=== PATIENT | female | born 1945 | race Caucasian/White ===

== ENCOUNTER 2017-07-14 11:24 | Emergency (ER) | payer MEDICARE, OTHER, BC ==
[~2017-07-14] VITALS: Ht 157.4 cm; Wt 68.0 kg
[~2017-07-14 11:24] MED LIST: ANTIVERT; ASPIRIN81 M1 PO; CIPRO500 MG PO; LIPITOR80 MG PO; LOMOTIL 0.025 M1 TAB PO; PREVACID30 M1 PO; SYNTHROID; VICODIN 5/500 505 MG PO; VITAMIN D; VYTORIN 10 MG-41 TA1 PO; ZOFRAN ODT8 MG PO
[2017-07-14] MEDS ORDERED: NAPROSYN500 MG PO (13:22)
== END 2017-07-14 13:43 | disposition home or self-care (01) ==
LOC: ED 11:24
DX: M25.561 Pain in right knee (principal); F17.200 Nicotine dependence, unspecified, uncomplicated; Z88.8 Allergy status to other drugs, medicaments and biological substances; Z79.82 Long term (current) use of aspirin; Z79.899 Other long term (current) drug therapy

== ENCOUNTER → 2019-04-06 | Day surgery (SDC) | payer OTHER, BC ==
[~2019-04-06] VITALS: Ht 157.4 cm; Wt 73.0 kg
[~2019-04-06] MED LIST changes: +METFORMIN ER500 MG PO; +NAPROSYN500 MG PO; +TOPROL XL25 MG PO; +XANAX0.25 MG PO
--- NOTE | ~2019-04-06 | O ---
[place], [place] OPERATIVE NOTE NAME: CORETTA DOSHI UNIT #: [id number] ROOM: DOCTOR: YULIYA LARRY MD BIRTHDATE: [birth year] DOS: 04/06/2019 PREOPERATIVE DIAGNOSIS: Cataract, left eye. POSTOPERATIVE DIAGNOSIS: Cataract, left eye. OPERATION: Extracapsular cataract extraction by phacoemulsification with posterior chamber intraocular lens implantation, left eye. ANESTHESIA: Monitored standby. OPERATIVE FINDINGS AND PROCEDURE: 2% Xylocaine topical anesthetic gel was applied to the eye in the preop area. The patient was taken to the operating room and prepped and draped in the standard fashion for sterile intraocular surgery. A time out procedure was performed verifying correct patient, correct site and corrects lens with Judd Larry M.D. The operating microscope was swung into position and the lid speculum was inserted. Using a Roselyn paracentesis blade, a paracentesis was made through clear cornea. A mixture of preservative-free lidocaine 4% and preservative-free epinephrine 1:1000 in a balanced salt solution was injected into the anterior chamber. Viscoelastic was used to fill the anterior chamber. Using a metal keratome a 2.4 mm self-sealing clear corneal cataract incision was made temporally at the limbus. Using a pre-bent 25 gauge cystotome needle, a standard continuous curvilinear capsulorrhexis was performed. The anterior capsule was removed with forceps. The lens nucleus was hydrodissected and phacoemulsified in the posterior chamber. Cortical material was removed with the irrigation aspiration hand piece and the posterior capsule was then polished with a curet under irrigation. The posterior chamber and capsular bag were filled with viscoelastic. A posterior chamber intraocular lens manufactured by: [employer], Model #AU00T0 and 19.0 diopters in strength were then inserted into the posterior chamber and within the capsular bag using the lens cartridge and injector system. Viscoelastic was removed using the irrigation aspiration handpiece. The anterior chamber was filled with balanced salt solution through the paracentesis. Both the paracentesis site and cataract incisions were hydrated with BSS and verified to be water-tight and self-sealing. The incision checked to be water-tight using a Weck-Zayda sponge. The integrity of the cataract wound and ocular tension were checked. Lid speculum and drapes were removed. The patient was transferred from the operating room to the recovery room in satisfactory condition. [place], [place] OPERATIVE NOTE NAME: DOSHI,CORETTA Audrey UNIT #: [id number] ROOM: DOCTOR: YULIYA LARRY MD BIRTHDATE: [birth year] YULIYA LARRY MD CM:OPRECORD:OPERATIVE NOTE [id number] YULIYA LARRY MD 04/06/19 1108 interface
[2019-04-06 07:43] VITALS: BP 108/43
[2019-04-06 08:37] VITALS: BP 117/68
[2019-04-06 08:52] VITALS: BP 120/58
[2019-04-06 09:06] VITALS: BP 98/54
== END | disposition home or self-care (01) ==
LOC: SDC 03-31 12:30
DX: H25.812 Combined forms of age-related cataract, left eye (principal); K21.9 Gastro-esophageal reflux disease without esophagitis; M19.90 Unspecified osteoarthritis, unspecified site; E11.9 Type 2 diabetes mellitus without complications; E03.9 Hypothyroidism, unspecified; F41.9 Anxiety disorder, unspecified; F32.9 Major depressive disorder, single episode, unspecified; F17.210 Nicotine dependence, cigarettes, uncomplicated; Z79.899 Other long term (current) drug therapy; Z88.1 Allergy status to other antibiotic agents; Z95.0 Presence of cardiac pacemaker; Z83.3 Family history of diabetes mellitus

== ENCOUNTER → 2019-04-27 | Day surgery (SDC) | payer OTHER, BC ==
[~2019-04-27] VITALS: Ht 157.4 cm; Wt 73.0 kg
--- NOTE | ~2019-04-27 | O ---
[place], [place] OPERATIVE NOTE NAME: CORETTA DOSHI UNIT #: [id number] ROOM: DOCTOR: YULIYA LARRY MD BIRTHDATE: [birth year] DOS: 04/27/2019 PREOPERATIVE DIAGNOSIS: Cataract, right eye. POSTOPERATIVE DIAGNOSIS: Cataract, right eye. OPERATION: Extracapsular cataract extraction by phacoemulsification with posterior chamber intraocular lens implantation, right eye. ANESTHESIA: Monitored standby. LENS INFORMATION: [employer], AU00T0, 19.5 diopters, right eye. OPERATIVE FINDINGS AND PROCEDURE: 2% Xylocaine topical anesthetic gel was applied to the eye in the preop area. The patient was taken to the operating room and prepped and draped in the standard fashion for sterile intraocular surgery. A time out procedure was performed verifying correct patient, correct site and corrects lens with Judd Larry M.D. The operating microscope was swung into position and the lid speculum was inserted. Using a Roselyn paracentesis blade, a paracentesis was made through clear cornea. Viscoelastic was used to fill the anterior chamber. Using a metal keratome a 2.4 mm self-sealing clear corneal cataract incision was made temporally at the limbus. Using a pre-bent 25 gauge cystotome needle, a standard continuous curvilinear capsulorrhexis was performed. The anterior capsule was removed with forceps. The lens nucleus was hydrodissected and phacoemulsified in the posterior chamber. Cortical material was removed with the irrigation aspiration hand piece and the posterior capsule was then polished with a curet under irrigation. The posterior chamber and capsular bag were filled with viscoelastic. A posterior chamber intraocular lens manufactured by: [employer], AU00T0, 19.5 diopters in strength were then inserted into the posterior chamber and within the capsular bag using the lens cartridge and injector system. Viscoelastic was removed using the irrigation aspiration handpiece. The anterior chamber was filled with balanced salt solution through the paracentesis. Both the paracentesis site and cataract incisions were hydrated with BSS and verified to be water-tight and self-sealing. The incision checked to be water-tight using a Weck-Zayda sponge. The integrity of the cataract wound and ocular tension were checked. Lid speculum and drapes were removed. The patient was transferred from the operating room to the recovery room in satisfactory condition. [place], [place] OPERATIVE NOTE NAME: CORETTA DOSHI UNIT #: [id number] ROOM: DOCTOR: YULIYA LARRY MD BIRTHDATE: [birth year] YULIYA LARRY MD CM:OPRECORD:OPERATIVE NOTE [id number] YULIYA LARRY MD 04/27/19 1035 interface
[2019-04-27 09:38] VITALS: BP 113/62
[2019-04-27 09:53] VITALS: BP 112/56
[2019-04-27 10:09] VITALS: BP 122/50
== END | disposition home or self-care (01) ==
LOC: SDC 04-21 10:15
DX: H25.811 Combined forms of age-related cataract, right eye (principal); F41.9 Anxiety disorder, unspecified; F32.9 Major depressive disorder, single episode, unspecified; K21.9 Gastro-esophageal reflux disease without esophagitis; M19.90 Unspecified osteoarthritis, unspecified site; F17.210 Nicotine dependence, cigarettes, uncomplicated; Z98.890 Other specified postprocedural states; Z95.5 Presence of coronary angioplasty implant and graft; Z88.1 Allergy status to other antibiotic agents; Z79.899 Other long term (current) drug therapy; Z83.3 Family history of diabetes mellitus

== ENCOUNTER 2022-11-13 13:27 | Emergency (ER) | payer MEDICARE, BC ==
[~2022-11-13] VITALS: Wt 68.0 kg
== END 2022-11-13 15:35 | disposition left against medical advice (07) ==
LOC: ED 13:27
DX: R13.10 Dysphagia, unspecified (principal); Z53.21 Procedure and treatment not carried out due to patient leaving prior to being seen by health care provider

== ENCOUNTER 2022-11-13 21:10 | Emergency (ER) | payer MEDICARE, BC ==
[~2022-11-13] VITALS: Ht 157.4 cm; Wt 68.0 kg
[2022-11-13 22:20] LABS: BASO # 0.1 10*3/uL (0.0-0.1); BASO % 0.8 % (0.0-1.0); EOS # 0.3 10*3/uL (0.0-0.4); EOS % 2.3 % (1.0-4.0); HEMATOCRIT 45.7 % (37.0-47.0); LYMPH # 4.8 10*3/uL (1.3-4.4); LYMPH % 40.2 % (27.0-41.0); MEAN CELL VOLUME 94.4 fl (81.0-99.0); MEAN CORPUSCULAR HGB 31.4 pg (27.0-31.0); MEAN CORPUSCULAR HGB CONC 33.3 g/dl (33.0-37.0); MEAN PLATELET VOLUME 9.7 fl (9.6-12.3); MONO % 8.6 % (3.0-9.0); NEUT # 5.7 10*3/uL (2.3-7.9); NEUT % 47.9 % (47.0-73.0); PLATELET COUNT AUTOMATED 159 10*3/uL (130-400); RED BLOOD COUNT 4.84 10*6/uL (4.10-5.10); RED CELL DISTRI WIDTH 13.7 % (0-14.5); WHITE BLOOD COUNT 11.9 10*3/uL (4.8-10.8)
[2022-11-13 22:36] LABS: ALKALINE PHOSPHATASE 86 U/L (46-116); BUN 6 mg/dl (9-23); CHLORIDE 108 mmol/L (98-107); LIPASE 32 U/L (12-53); POTASSIUM 3.6 mmol/L (3.4-5.1); SGPT/ALT 13 U/L (10-49); TOTAL PROTEIN 6.7 gm/dL (6.0-8.0)
[2022-11-13 22:41] LABS: ACT PARTIAL THROMBO TIME 29.1 SECONDS (20.0-32.1)
== END 2022-11-14 04:14 | disposition home or self-care (01) ==
LOC: ED 21:10
PROVIDERS: Physician Assistant
DX: K29.70 Gastritis, unspecified, without bleeding (principal); R10.11 Right upper quadrant pain; E83.42 Hypomagnesemia; K21.9 Gastro-esophageal reflux disease without esophagitis; E11.9 Type 2 diabetes mellitus without complications; F41.9 Anxiety disorder, unspecified; F32.A Depression, unspecified; Z88.1 Allergy status to other antibiotic agents; Z98.890 Other specified postprocedural states